=== PATIENT | male | born 1980 | race Caucasian/White ===

== ENCOUNTER 2020-02-18 23:17 | Emergency (ER) | payer MEDICAID, SELFPAY ==
[2020-02-18 23:17] VITALS: BP 131/76; PULSE 88; RESP 18; TEMP 36.7; O2SAT 97; BMI 31.8
--- NOTE | 2020-02-18 23:29 | RAD_ITS ---
STUDY: X-RAY CHEST REASON FOR EXAM: Male, 39 years old. Pt had a fever and a cough TECHNIQUE: Single AP portable view of the chest. COMPARISON: None. FINDINGS: All hazy opacification in the bilateral central upper lung parenchyma. Mild volume loss in the right base. No air bronchograms seen. There is no demonstrated pleural abnormality. Normal size heart. Normal mediastinum and candelario. Normal visualized pulmonary arteries. Normal visualized aortic arch and descending thoracic aorta. Normal visualized thoracic spine. Normal visualized ribs, clavicles, and shoulders. There is no demonstrated abnormality of the visualized soft tissue structures of the upper abdomen. RAD/Chest 1 View (Portable) IMPRESSION: Minimal airspace disease with hazy opacification as above. Electronically Signed: Blank Gayle MD at 23:49 EDT , Service support ,
--- NOTE | 2020-02-18 23:47 | ED.VISSUMM ---
- ER Visit Summary Date of Service: 02/18/20 Chief Complaint: Cough History of Present Illness: The patient is a [address] Parker. He reports he has a cough that began 2 days ago. Is productive of clear sputum without blood. Has had a fever to 100.2 degrees. He denies any shortness of breath. Does report he has a slight sore throat. 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 He does not have known sick contacts. Physical Examination: Vitals: Stable. Afebrile. General: Well-nourished and well-developed. Head: Normocephalic atraumatic. Neck: Supple, no lymphadenopathy. No JVD. Nontender. Cardiovascular: Regular rate and rhythm. No murmurs. Respiratory: No respiratory distress. Clear to auscultation bilaterally. Abdominal: Soft, nontender, nondistended, normal bowel sounds. No guarding, rebound, or peritoneal signs. Back: Nontender. Extremities: Nontender, no edema. Skin: Normal color, no rash. Neurologic: Alert and oriented ?3. Cranial nerves II through XII are intact. Normal strength and sensation. Psych: Normal affect. Test Results: Clinical Impression(s) from Imaging Studies Chest X-Ray 02/18/20 23:29 IMPRESSION: Minimal airspace disease with hazy opacification as above. Electronically Signed: Blank Gayle MD at 23:49 EDT , Service support , Emergency Department Course and Treatment: Patient is resting comfortably. Treatment Plan: Discussed the patient at this time I cannot rule out that he has been infected with COVID-19. He is instructed to go into self isolation for the next 2 weeks. He is given a note for work. Due to his smoking he will be placed on Zithromax. Instructed to follow-up with his primary care physician in 2 weeks if not improving. Return to the emergency department for any worsening symptoms. Disposition: To home in improved and stable condition. Impression: 1. URI. 2. Suspected COVID-19 infection. This note was generated with [employer] software. It may contain incorrect words, spelling, and punctuation that were not noted in review of the chart prior to signing ED Disposition - Plan for ED Patient: Instructions: ED Upper Resp Infec Abx Tx Prescriptions: Albuterol Inhaler [Ventolin Hfa] 2 puff INHALATION Q4H PRN PRN #1 inhaler PRN Reason: Wheezing Prescription Printed Azithromycin [Zithromax] 250 mg PO DAILY #4 tab Prescription Printed Referrals: Jah Barksdale MD [Primary Care Provider] - 03/04/20 Additional Instructions: If not improved.
--- NOTE | 2020-02-19 00:11 | ED.RN ---
gave patient discharge instructions and instructed patient to wait for antibiotic. This RN went back to give patient zithromax dose and patient had already left.
== END 2020-02-19 00:12 | disposition home or self-care (01) ==
LOC: ED 23:45
PROVIDERS: Emergency Provider Emergency Medicine; PCP Family Medicine
DX: J06.9 Acute upper respiratory infection, unspecified (principal); J45.909 Unspecified asthma, uncomplicated; F17.210 Nicotine dependence, cigarettes, uncomplicated
CPT/HCPCS: 71045; 99282